=== PATIENT | male | born 1940 | race Caucasian/White ===

== ENCOUNTER 2017-10-04 20:59 | Emergency (ER) | payer OTHER ==
[~2017-10-04] VITALS: Ht 175.3 cm; Wt 77.1 kg
[2017-10-04 21:02] VITALS: BP 154/96
--- NOTE | 2017-10-04 21:10 | NUR ---
PT AMBULATED TO ER BED 10
--- NOTE | 2017-10-04 21:20 | NUR ---
PATIENT PRESENTS TO ED WITH C/O NUMBNESS IN LEFT HAND AND LIPS. PT HAS EQUAL MANAGER PSYCHIATRY IN BOTH HANDS, DENIES CHEST PAIN. MED HX: ASTHMA PT DENIES N/V/D; SKIN IS PINK/WARM/DRY; AAOX4 WITH EVEN AND STEADY GAIT; LUNGS CLEAR BL; HR EVEN AND REGULAR; PT DENIES ANY FEVER, CP, SOB, OR COUGH AT THIS TIME; PATIENT STATES PAIN OF 0/10 AT THIS TIME; VSS; PATIENT POSITIONED FOR COMFORT; HOB ELEVATED; BEDRAILS UP X2; BED DOWN. ER MD MADE AWARE OF PT STATUS.
--- NOTE | 2017-10-04 21:38 | NUR ---
DR AREVALO MADE AWARE OF ATRIAL FLUTTER ON EKG. PT DENIES ANY CHEST PAIN AT THIS TIME.
--- NOTE | 2017-10-04 22:15 | NUR ---
XRAY AT BEDSIDE
[2017-10-04 23:01] LABS: HEMATOCRIT 42.7 % (36-52); HEMOGLOBIN 14.3 g/dL (12.0-18.0); MEAN CORPUSCULAR HEMOGLOBIN 32 pg (27-31); MEAN CORPUSCULAR HGB CONC 33 g/dL (33-37); MEAN CORPUSCULAR VOLUME 94 fL (80-94); PLATELET COUNT (AUTO) 265 K/uL (140-450); RED BLOOD CELL COUNT(AUTO) 4.54 MIL/uL (4.20-6.10); RED CELL DISTRIBUTION WIDTH 12.8 % (11.6-13.7)
[2017-10-04 23:08] LABS: ANION GAP 12.6 (8-16); CARBON DIOXIDE 28.8 mmol/L (21-32); CHLORIDE 103 mmol/L (98-107); CREATININE 1.2 mg/dL (0.7-1.3); GLUCOSE 103 mg/dL (74-106); POTASSIUM 4.4 mmol/L (3.5-5.1); SODIUM SERUM 140 mmol/L (136-145); UREA NITROGEN, BLOOD 17 mg/dL (7-18)
[2017-10-04 23:17] LABS: EOSINOPHILS % (MANUAL) 2 % (0-4); LYMPHOCYTES % (MANUAL) 41 % (20-46); MONOCYTES % (MANUAL) 15 % (5-12)
[2017-10-04 23:22] LABS: ALBUMIN 3.8 g/dL (3.4-5.0); ASPARTATE AMINOTRANSFERASE 4 U/L (15-37); TOTAL BILIRUBIN 0.7 mg/dL (0.0-1.0)
[2017-10-05 00:11] VITALS: BP 154/80
--- NOTE | 2017-10-05 00:11 | NUR ---
Patient discharged with v/s stable. Written and verbal after care instructions given and explained. Patient verbalized understanding. Ambulatory with steady gait. All questions addressed prior to discharge. Advised to follow up with PMD.
== END 2017-10-05 00:11 | disposition home or self-care (01) ==
LOC: MED 20:59
DX: I48.91 Unspecified atrial fibrillation (principal); J45.909 Unspecified asthma, uncomplicated; Z91.018 Allergy to other foods
CPT/HCPCS: 36415; 71045; 80053; 83880; 84484; 85025; 93005; 99285; Q0092